=== PATIENT | female | born 1965 | race Caucasian/White ===

== ENCOUNTER 2017-11-23 07:05 | Emergency (ER) | payer BC ==
[2017-11-23 07:29] VITALS: BP 138/84
--- NOTE | 2017-11-23 07:54 | UC ---
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 + exposure to strep. Hurts to swallow but can swallow. No rash. Mild runny nose. No cough. No sob. No GI issues. - History of Current Complaint Chief Complaint: UCRespiratory Stated Complaint: SORE THROAT Time Seen by Provider: 11/23/17 07:17 Hx Obtained From: Patient Pain Intensity: 4 - Allergy/Home Medications Allergies/Adverse Reactions: Allergies Allergy/AdvReac Type Severity Reaction Status Date / Time No Known Allergies Allergy Verified 11/23/17 07:22 Home Medications: Home Medications Acetaminophen TAB* [Tylenol TAB*] 650 mg PO PRN 11/23/17 [History] Ibuprofen TAB* [Advil TAB*] 400 mg PO Q6H PRN 11/23/17 [History Confirmed ] PMH/Surg Hx/FS Hx/Imm Hx Previously Healthy: Yes - Surgical History Surgical History: Yes Surgery Procedure, Year, and Place: Hysterectomy, Complete-2008 - Family History Known Family History: Positive: None - Social History Alcohol Use: Rare Substance Use Type: None Smoking Status (MU): Never Smoked Tobacco Review of Systems Constitutional: Negative Skin: Negative Eyes: Negative ENT: Sore Throat, Other - runny nose Respiratory: Negative Cardiovascular: Negative Gastrointestinal: Negative Genitourinary: Negative Motor: Negative Neurovascular: Negative Musculoskeletal: Negative Neurological: Negative Is Patient Immunocompromised?: No All Other Systems Reviewed And Are Negative: Yes Physical Exam Triage Information Reviewed: Yes Appearance: Well-Appearing, Well-Nourished Vital Signs: Initial Vital Signs Temp 98.3 F 11/23/17 07:23 Pulse 79 11/23/17 07:23 Resp 16 11/23/17 07:23 BP 138/84 11/23/17 07:23 Pulse Ox 98 11/23/17 07:23 Vital Signs Reviewed: Yes Eye Exam: Normal ENT: Positive: Pharyngeal erythema, Other - TMs ok. EAC's ok. Uvula midline. Post pharynx red. No apprec. sores. Neck supple. Neck exam: Normal Neck: Positive: Supple, Nontender, No Lymphadenopathy Respiratory Exam: Normal Respiratory: Positive: Chest non-tender, Lungs clear, Normal breath sounds, No respiratory distress, No accessory muscle use Cardiovascular Exam: Normal Cardiovascular: Positive: RRR, No Murmur, Pulses Normal, Brisk Capillary Refill Abdominal Exam: Normal Abdomen Description: Positive: Nontender Bowel Sounds: Positive: Present Musculoskeletal Exam: Normal Musculoskeletal: Positive: Strength Intact Neurological Exam: Normal - grossly nonfocal Psychological Exam: Normal - conversing easily and appropriately Skin Exam: Normal - no visible or reported rash Course/Dx - Course Course Of Treatment: RST x 2 "invalid". RST neg. I am suspicious for infection in and above viral. D/w pt. throat cx sent. Rx amoxil. Start probiotic. - Differential Dx - Multi-Symptom Provider Diagnoses: Acute pharyngitis Discharge - Discharge Plan Condition: Stable Disposition: HOME Patient Education Materials: Pharyngitis (ED) Referrals: Aranza Ugarte MD [Primary Care Provider] -
--- NOTE | 2017-11-25 15:31 | UC ---
- Progress Note Progress Note: Throat Culture with no strep. Needs to stop antibiotics. D/C Amoxicillin
== END 2017-11-23 08:28 | disposition home or self-care (01) ==
LOC: UCCORT 07:05
DX: J02.9 Acute pharyngitis, unspecified (principal); Z20.828 Contact with and (suspected) exposure to other viral communicable diseases
CPT/HCPCS: 87070; 87651; 99212; G0463